=== PATIENT | male | born 1940 ===

== ENCOUNTER 2016-07-28 20:11 | Emergency (ER) | payer MEDICARE, BC ==
[2016-07-28 20:11] VITALS: BMI 33.9
[2016-07-28 20:26] VITALS: TEMP 97.9
[2016-07-28 21:00] VITALS: RESP 20
[2016-07-28] MEDS ORDERED: Sodium Chloride 0.9% 1,000 ML IV SCH (21:15)
[2016-07-28] MEDS ORDERED: Sodium Chloride 0.9% 1,000 ML ONE (21:18)
[2016-07-28 21:23] LABS: BASO % 0.3 % (0.0-2.0); EOS # 0.1 K/uL (0.0-0.7); EOS % 1.5 % (0.0-4.0); HEMATOCRIT 40.6 % (35.0-51.0); LYMPH # 0.8 K/uL (1.0-4.3); MEAN CORPUSCULAR HEMOGLOBIN 27.7 pg (27.0-31.0); MEAN CORPUSCULAR HGB CONC 32.3 g/dL (33.0-37.0); MEAN PLATELET VOLUME 8.4 fL (7.2-11.7); MONO # 0.6 K/uL (0.0-0.8); MONO % 10.3 % (0.0-10.0); NRBC % 0.1 % (0.0-2.0); RED CELL DISTRIBUTION WIDTH 15.7 % (11.5-14.5)
[2016-07-28 21:28] LABS: CHLORIDE 105 mmol/L (98-107)
[2016-07-28 21:29] LABS: POTASSIUM 4.4 mmol/L (3.6-5.2); SODIUM 138 mmol/L (132-148)
[2016-07-28 21:31] LABS: ALB/GLOB RATIO 1.5 (1.0-2.1); AST/SGOT 24 U/L (17-59); BILIRUBIN,TOTAL 0.9 mg/dL (0.2-1.3); CARBON DIOXIDE 21 mmol/L (22-30); GFR AFRICAN-AMERICAN > 60; TOTAL PROTEIN 7.3 g/dL (6.3-8.3)
[2016-07-28 21:32] LABS: ALKALINE PHOSPHATASE 54 U/L (38-126); ALT/SGPT 45 U/L (21-72); BLOOD UREA NITROGEN 25 mg/dL (9-20); CALCIUM 9.4 mg/dl (8.6-10.4); GLUCOSE,RANDOM 106 mg/dL (75-110)
[2016-07-28 22:45] LABS: RBC URINE 2 /hpf (0-3); URINE BILIRUBIN NEGATIVE (NEGATIVE); URINE BLOOD NEGATIVE (NEGATIVE); URINE COLOR Yellow (YELLOW); URINE GLUCOSE (UA) NORMAL (Normal); URINE KETONE NEGATIVE (NEGATIVE); URINE LEUKOCYTE ESTERASE NEG Leu/uL (Negative); URINE PROTEIN NEGATIVE (NEGATIVE); URINE UROBILINOGEN NORMAL mg/dL (0.2-1.0); WBC URINE 4 /hpf (0-5)
--- NOTE | 2016-07-28 22:49 | C.PDOC ---
History Of Present Illness 75 year old male presents to the ED with complaints of non-productive cough for a month with generalized malaise for a week. Patient denies any chest pain, SOB , abdominal pain, nausea, or vomiting. Chief Complaint (Nursing): Shortness Of Breath History Per: Patient History/Exam Limitations: no limitations Onset/Duration Of Symptoms: Persistent Current Symptoms Are (Timing): Still Present Associated Symptoms: denies: Fever, Chills, Chest Pain Recent travel outside of the [place]: No Past Medical History Reviewed: Historical Data, Nursing Documentation, Vital Signs Vital Signs: Last Vital Signs Temp 97.9 F 07/28/16 23:24 Pulse 60 07/28/16 23:24 Resp 20 07/28/16 23:24 BP 141/77 07/28/16 23:24 Pulse Ox 100 07/28/16 23:24 - Medical History PMH: HTN Surgical History: Coronary Stent Family History: States: Unknown Family Hx - Social History Hx Tobacco Use: Yes (QUIT) Hx Alcohol Use: No Hx Substance Use: No - Immunization History Hx Tetanus Toxoid Vaccination: No Hx Influenza Vaccination: No Hx Pneumococcal Vaccination: No Review Of Systems Constitutional: Positive for: Malaise. Negative for: Fever, Chills Cardiovascular: Negative for: Chest Pain Respiratory: Positive for: Cough (non-productive cough ). Negative for: Shortness of Breath Gastrointestinal: Negative for: Nausea, Vomiting, Abdominal Pain, Diarrhea Physical Exam - Physical Exam Appears: Non-toxic, No Acute Distress Skin: Warm, Dry Neck: Normal ROM, Supple Cardiovascular: Other (ekg sinus rhythm 77, 1st degree AV block, left axis deviation) Respiratory: No Decreased Breath Sounds, No Accessory Muscle Use, No Rales, No Rhonchi, No Stridor, No Wheezing Gastrointestinal/Abdominal: Soft, No Tenderness, No Distention, No Guarding, No Rebound Back: No CVA Tenderness Neurological/Psych: Oriented x3 ED Course And Treatment - Laboratory Results Result Diagrams: 07/28/16 21:16 07/28/16 21:16 O2 Sat by Pulse Oximetry: 99 Disposition - Disposition Referrals: Krish Tobar MD [Medical Doctor] - Disposition: HOME/ ROUTINE Disposition Time: 22:50 Condition: GOOD Additional Instructions: Thank you for letting us take care of you today. Your provider was Dr. Medina. You were treated for persistent cough. The emergency medical care you received today was directed at your acute symptoms. If you were prescribed any medication, please fill it and take as directed. It may take several days for your symptoms to resolve. Return to the Emergency Department if your symptoms worsen, do not improve, or if you have any other problems. Please contact your doctor or call one of the physicians/clinics you have been referred to that are listed on the Patient Visit Information form that is included in your discharge packet. Bring any paperwork you were given at discharge with you along with any medications you are taking to your follow up visit. Our treatment cannot replace ongoing medical care by a primary care provider (PCP) outside of the emergency department. Thank you for allowing the [facility] team to be part of your care today. Follow up with Dr. Tobar in 2 days as scheduled to be re-evaluated. Prescriptions: Azithromycin [Zithromax] 250 mg PO DAILY #6 tab Instructions: Acute Bronchitis (ED) - Clinical Impression Clinical Impression: Bronchitis - Scribe Statement The provider has reviewed the documentation as recorded by the Scribe Dana Tuttle All medical record entries made by the Scribe were at my direction and personally dictated by me. I have reviewed the chart and agree that the record accurately reflects my personal performance of the history, physical exam, medical decision making, and the department course for this patient. I have also personally directed, reviewed, and agree with the discharge instructions and disposition.
[2016-07-28 23:25] VITALS: BP 141/77; PULSE 60
[2016-07-29 02:38] VITALS: O2SAT 99
--- NOTE | 2016-07-29 07:49 | RAD ---
PROCEDURE: CHEST RADIOGRAPH, 1 VIEW HISTORY: cough COMPARISON: None available. FINDINGS: LUNGS: Mild venous congestion. Mild left basilar atelectasis. PLEURA: No pneumothorax or pleural fluid seen. CARDIOVASCULAR: Normal. OSSEOUS STRUCTURES: No significant abnormalities. VISUALIZED UPPER ABDOMEN: Normal. OTHER FINDINGS: None. IMPRESSION: Mild venous congestion. Mild left basilar atelectasis.
--- NOTE | 2016-08-13 18:13 | CARD ---
APPROVED REPORT EKG Measurement Heart [id number] <Conclusion> Sinus rhythm with 1st degree AV block Otherwise normal ECG
== END 2016-07-28 23:50 | disposition home or self-care (01) ==
LOC: C.ER 20:11
DX: J40 Bronchitis, not specified as acute or chronic (principal)
CPT/HCPCS: 71010; 80053; 81001; 83880; 84484; 85025; 96360; 99284; J7040

== ENCOUNTER 2016-09-14 10:54 | Emergency (ER) | payer MEDICARE, BC ==
[2016-09-14 11:11] VITALS: O2SAT 97
[2016-09-14 11:12] VITALS: BMI 34.8
[2016-09-14] MEDS ORDERED: Sodium Chloride 0.9% 1,000 ML IV ONE ×2 (11:47→11:48)
--- NOTE | 2016-09-14 11:47 | C.PDOC ---
History Of Present Illness 75 y/o male with Hx of arthritis and chronic knee pain presents to ED with complaints of right leg pain, dizziness for a "couple of weeks", occasional buzzing sound and hearing loss on right ear. A genicular nerve block procedure was done by Dr. Brunson on 09/03/16. Patient states noticing bruising and swelling to area the following day, tried calling the Physician but he is out of town. Patient denies headache, numbness, weakness or any other complaints at this time. Time Seen by Provider: 09/14/16 11:22 Chief Complaint (Nursing): Lower Extremity Problem/Injury History Per: Patient History/Exam Limitations: no limitations Onset/Duration Of Symptoms: Days Current Symptoms Are (Timing): Still Present Past Medical History Reviewed: Historical Data, Nursing Documentation, Vital Signs Vital Signs: Last Vital Signs Temp 97.8 F 09/14/16 14:57 Pulse 64 09/14/16 14:57 Resp 20 09/14/16 14:57 BP 132/70 09/14/16 14:57 Pulse Ox 97 09/14/16 14:57 - Medical History PMH: HTN Surgical History: Coronary Stent Family History: States: Unknown Family Hx - Social History Hx Tobacco Use: Yes (QUIT) Hx Alcohol Use: No Hx Substance Use: No - Immunization History Hx Tetanus Toxoid Vaccination: No Hx Influenza Vaccination: No Hx Pneumococcal Vaccination: No Review Of Systems Constitutional: Negative for: Fever, Chills ENT: Positive for: Ear Pain Respiratory: Negative for: Shortness of Breath Skin: Positive for: Bruising Neurological: Negative for: Weakness, Headache, Dizziness Physical Exam - Physical Exam Appears: Non-toxic, No Acute Distress Skin: Normal Color, Warm Head: Atraumatic, Normacephalic Eye(s): bilateral: Normal Inspection, EOMI Ear(s): Bilateral: Normal Oral Mucosa: Moist Neck: Normal ROM Chest: Symmetrical Cardiovascular: Rhythm Regular, No Murmur Respiratory: Normal Breath Sounds, No Rales, No Rhonchi, No Wheezing Extremity: Tenderness (Right knee Tenderness), No Calf Tenderness, Swelling ( Right knee hematoma to medial aspect of knee) Pulses: Left Dorsalis Pedis: Normal, Right Dorsalis Pedis: Normal Neurological/Psych: Oriented x3, Normal Speech, Normal Cognition, Other (No focal deficits) Gait: Steady ED Course And Treatment - Laboratory Results Result Diagrams: 09/14/16 12:07 09/14/16 12:07 Lab Interpretation: No Acute Changes ECG: Interpreted By Me, Viewed By Me ECG Rhythm: Sinus Rhythm ECG Interpretation: No Acute Changes Rate From EC (Normal ECG) O2 Sat by Pulse Oximetry: 97 (Room air ) Medical Decision Making Medical Decision Making: Impression: Dizziness and right knee pain Plan: Labs, doppler Progress: Dr. Mcnair evaluated patient and agreed with plan Doppler reviewed and negative for DVT Labs unremarkable Patient reports feeling much better and denies any dizziness upon reevaluation. No headache or other complaints Patient is alert and oriented and no neuro deficits. Patient stable for discharge. Instructed to follow up with ortho Disposition Counseled Patient/Family Regarding: Need For Followup - Disposition Referrals: Melvin Brunson MD [Staff Provider] - Disposition: HOME/ ROUTINE Disposition Time: 14:45 Condition: STABLE Additional Instructions: Your labs were normal Doppler reviewed and negative for DVT Please follow up with your primary physician and ortho Prescriptions: Meclizine HCl 25 mg PO Q8 PRN #30 tablet PRN Reason: Dizziness Instructions: Vertigo (ED), Hematoma (ED) Print Language: CITIZEN OF [place] - POA Present On Arrival: None - Clinical Impression Clinical Impression: Hematoma, Vertigo - 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 - Scribe Statement The provider has reviewed the documentation as recorded by the Taniibjodie Mistry All medical record entries made by the Taniibjodie were at my direction and personally dictated by me. I have reviewed the chart and agree that the record accurately reflects my personal performance of the history, physical exam, medical decision making, and the department course for this patient. I have also personally directed, reviewed, and agree with the discharge instructions and disposition.
[2016-09-14 12:12] LABS: BASO # 0.1 K/uL (0.0-0.2); BASO % 0.7 % (0.0-2.0); EOS # 0.1 K/uL (0.0-0.7); EOS % 1.3 % (0.0-4.0); HEMATOCRIT 39.3 % (35.0-51.0); LYMPH % 14.1 % (20.0-40.0); MEAN CELL VOLUME 86.4 fL (80.0-94.0); MEAN CORPUSCULAR HEMOGLOBIN 28.5 pg (27.0-31.0); MEAN PLATELET VOLUME 8.4 fL (7.2-11.7); MONO # 0.8 K/uL (0.0-0.8); MONO % 11.5 % (0.0-10.0); RED CELL DISTRIBUTION WIDTH 15.6 % (11.5-14.5); WHITE BLOOD COUNT 6.9 K/uL (4.8-10.8)
[2016-09-14 12:20] LABS: INR 1.1
[2016-09-14 12:21] LABS: CHLORIDE 104 mmol/L (98-107)
[2016-09-14 12:22] LABS: POTASSIUM 4.6 mmol/L (3.6-5.2); SODIUM 138 mmol/L (132-148)
[2016-09-14 12:24] LABS: ALB/GLOB RATIO 1.6 (1.0-2.1); AST/SGOT 15 U/L (17-59); BILIRUBIN,TOTAL 0.7 mg/dL (0.2-1.3); BLOOD UREA NITROGEN 30 mg/dL (9-20); CARBON DIOXIDE 23 mmol/L (22-30); GFR AFRICAN-AMERICAN > 60; TOTAL PROTEIN 6.4 g/dL (6.3-8.3)
[2016-09-14 12:25] LABS: ALKALINE PHOSPHATASE 53 U/L (38-126); ALT/SGPT 16 U/L (21-72); CALCIUM 8.9 mg/dl (8.6-10.4); GLUCOSE,RANDOM 103 mg/dL (75-110)
[2016-09-14 14:58] VITALS: BP 132/70; PULSE 64; RESP 20; TEMP 97.8
--- NOTE | 2016-09-18 10:13 | VASCLAB ---
PROCEDURE: Right Lower Extremity Venous Duplex Exam. HISTORY: pain and swelling s.p procedure PRIORS: None. TECHNIQUE: Right common femoral, femoral, popliteal and posterior tibial, peroneal and great saphenous veins were evaluated. Flow was assessed with color Doppler, compressibility, assessment of phasic flow and augmentation response. Report prepared by EUGENIA Marino, RVT FINDINGS: RIGHT: 1. Common Femoral Vein: 1.1. Compressibility - Fully compressible: Thrombus - None: Flow - Phasic: Augmentation -Normal: Reflux - None. 2. Femoral Vein: 2.1. Compressibility - Fully compressible: Thrombus - None: Flow - Phasic: Augmentation -Normal: Reflux - None. 3. Popliteal Vein: 3.1. Compressibility - Fully compressible: Thrombus - None: Flow - Phasic: Augmentation -Normal: Reflux - None. 4. Posterior Tibial Vein: 4.1. Compressibility - Fully compressible: Thrombus - None: Flow - Phasic: Augmentation -Normal: Reflux - None. 5. Peroneal Vein: 5.1. Compressibility - Fully compressible: Thrombus - None: Flow - Phasic: Augmentation -Normal: Reflux - None. 6. Great Saphenous Vein: 6.1. Compressibility - Fully compressible: Thrombus -None: Flow - Phasic: Augmentation - Normal: Reflux - None. OTHER FINDINGS: IMPRESSION: No evidence of deep or superficial vein thrombosis of the right lower extremity with excellent venous flow. Normal valve function noted of the right side. Normal venous flow noted in the left common femoral vein.
--- NOTE | 2016-09-18 12:42 | CARD ---
APPROVED REPORT EKG Measurement Heart [id number] <Conclusion> Normal sinus rhythm Normal ECG
== END 2016-09-14 14:57 | disposition home or self-care (01) ==
LOC: C.ER 10:54
DX: R42 Dizziness and giddiness (principal); L76.32 Postprocedural hematoma of skin and subcutaneous tissue following other procedure

== ENCOUNTER 2018-02-05 11:05 | Emergency (ER) | payer MEDICARE, BC ==
[2018-02-05 11:05] VITALS: BMI 32.8
[2018-02-05 11:16] VITALS: RESP 18
--- NOTE | 2018-02-05 11:47 | C.PDOC ---
Addendum entered and electronically signed by Nellie Penn PA-C 02/06/18 17:51: Addendum Addendum: . Original Note: History Of Present Illness 77 year old male presents to the ED for evaluation of mid-back pain for the last new days s/p CT guided needle biopsy in [facility] on 01/21/18. Patient reports that after the biopsy he has been experiencing back pain, shortness of breath, and difficulty sleeping when applying pressure to the area. Notes has had not followed up with his doctor, does not know the results of the biopsy, and has a follow up appointment in a few days. Denies fever, nausea, vomiting, and any other associated symptoms. Time Seen by Provider: 02/05/18 11:23 Chief Complaint (Nursing): Shortness Of Breath History Per: Patient History/Exam Limitations: no limitations Onset/Duration Of Symptoms: Days Current Symptoms Are (Timing): Still Present Past Medical History Reviewed: Historical Data, Nursing Documentation, Vital Signs Vital Signs: Last Vital Signs Temp 98.7 F 02/05/18 11:08 Pulse 70 02/05/18 11:08 Resp 18 02/05/18 11:08 BP 161/78 H 02/05/18 11:08 Pulse Ox 97 02/05/18 11:08 - Medical History PMH: Back Problems, HTN, Hypercholesterolemia, Chronic Kidney Disease Surgical History: Coronary Stent Denies: Pacemaker Family History: States: Unknown Family Hx - Social History Hx Tobacco Use: Yes (QUIT) Hx Alcohol Use: No Hx Substance Use: No - Immunization History Hx Tetanus Toxoid Vaccination: No Hx Influenza Vaccination: No Hx Pneumococcal Vaccination: No Review Of Systems Constitutional: Negative for: Fever Respiratory: Positive for: Shortness of Breath Gastrointestinal: Negative for: Nausea, Vomiting Musculoskeletal: Positive for: Back Pain (mid-back.) Physical Exam - Physical Exam Appears: Well, Non-toxic Skin: Normal Color, Warm, Dry Head: Atraumatic, Normacephalic Eye(s): bilateral: Normal Inspection Oral Mucosa: Moist Neck: Normal ROM, Supple Chest: Symmetrical, No Deformity, No Tenderness Cardiovascular: Rhythm Regular, No Murmur Respiratory: Normal Breath Sounds, No Rales, No Rhonchi, No Wheezing Gastrointestinal/Abdominal: Normal Exam, Soft, No Tenderness Back: Normal Inspection, No CVA Tenderness, No Other ((-) no ecchymosis. (-) swelling. (-) erythema. (-) cellulitis.) Extremity: Normal ROM (x4) Neurological/Psych: Oriented x3, Normal Speech Gait: Steady ED Course And Treatment - Laboratory Results Result Diagrams: 02/05/18 11:47 02/05/18 11:47 ECG: Viewed By Me ECG Rhythm: Sinus Rhythm Interpretation Of ECG: [place] sinus. [address] elevations Rate From EC O2 Sat by Pulse Oximetry: 97 (RA) Pulse Ox Interpretation: Normal - Other Rad CXR X-Ray: Viewed By Me, Read By Radiologist Interpretation: FINDINGS: LUNGS: Somewhat diminished inspiratory volume identified bilaterally. Crowding of bronchovascular markings is seen more so on the right than left base though limited alveolitis not excluded here. Clinically correlate further. PLEURA: No significant pleural effusion identified. No pneumothorax apparent. CARDIOVASCULAR: No atherosclerotic calcification present. Normal. OSSEOUS STRUCTURES: No significant abnormalit ies. VISUALIZED UPPER ABDOMEN: Normal. OTHER FINDINGS: None. IMPRESSION: Diminished history volume crowds the bronchovascular markings at the right greater than left lung bases. Early alveolitis difficult to completely exclude the right base but is not definite. Clinically correlate further. Remaining lung patel clear. No pulmonary vascular congestion. Lung VQ X-Ray: Viewed By Me, Read By Radiologist Interpretation: FINDINGS: VENTILATION COMPONENT: Normal. PERFUSION COMPONENT: Heterogeneous distribution of radionuclide. No geographic, segmental, lobar abnormalities apparent on the present examination. IMPRESSION: Low probability ventilation perfusion scan for pulmonary embolism. Medical Decision Making Medical Decision Making: Plan/Orders: --Blood sent. --CXR. --Urinalysis. --EKG. --D Dimer COAG. EKG [place] sinus [address] elevations Patient stable for discharge home. 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 - Scribe Statement The provider has reviewed the documentation as recorded by the Scribe (Beverly Calles) All medical record entries made by the Scribe were at my direction and personally dictated by me. I have reviewed the chart and agree that the record accurately reflects my personal performance of the history, physical exam, medical decision making, and the department course for this patient. I have also personally directed, reviewed, and agree with the discharge instructions and disposition.
[2018-02-05 11:52] LABS: BASO # 0.1 K/uL (0.0-0.2); BASO % 0.9 % (0.0-2.0); EOS # 0.2 K/uL (0.0-0.7); EOS % 2.4 % (0.0-4.0); HEMOGLOBIN 12.1 g/dL (12.0-18.0); LYMPH % 12.3 % (20.0-40.0); MEAN CELL VOLUME 84.6 fL (80.0-94.0); MEAN CORPUSCULAR HEMOGLOBIN 28.4 pg (27.0-31.0); MEAN CORPUSCULAR HGB CONC 33.6 g/dL (33.0-37.0); MEAN PLATELET VOLUME 8.4 fL (7.2-11.7); MONO # 0.8 K/uL (0.0-0.8); MONO % 10.4 % (0.0-10.0); NEUT # 5.8 K/uL (1.8-7.0); NRBC % 0.1 % (0.0-2.0); RBC 4.27 Mil/uL (4.40-5.90); RED CELL DISTRIBUTION WIDTH 14.7 % (11.5-14.5); WHITE BLOOD COUNT 7.8 K/uL (4.8-10.8)
[2018-02-05 12:08] LABS: ALB/GLOB RATIO 1.5 (1.0-2.1); ALBUMIN 4.1 g/dL (3.5-5.0); ALT/SGPT 25 U/L (21-72); AST/SGOT 20 U/L (17-59); BLOOD UREA NITROGEN 23 mg/dL (9-20); CALCIUM 9.4 mg/dl (8.6-10.4); GFR NON-AFRICAN AMERICAN 58
[2018-02-05 12:15] LABS: SQUAMOUS EPITHIAL < 1 /hpf (0-5); URINE BILIRUBIN NEGATIVE (NEGATIVE); URINE BLOOD 1+ (NEGATIVE); URINE CLARITY Clear (Clear); URINE COLOR Yellow (YELLOW); URINE GLUCOSE (UA) NORMAL (Normal); URINE LEUKOCYTE ESTERASE NEG Leu/uL (Negative); URINE PROTEIN NEGATIVE (NEGATIVE); URINE UROBILINOGEN NORMAL mg/dL (0.2-1.0)
--- NOTE | 2018-02-05 13:59 | RAD ---
Date of service: 02/05/2018 HISTORY: sob COMPARISON: Portable chest 07/28/2016. TECHNIQUE: Chest PA and lateral FINDINGS: LUNGS: Somewhat diminished inspiratory volume identified bilaterally. Crowding of bronchovascular markings is seen more so on the right than left base though limited alveolitis not excluded here. Clinically correlate further. PLEURA: No significant pleural effusion identified. No pneumothorax apparent. CARDIOVASCULAR: No atherosclerotic calcification present Normal. OSSEOUS STRUCTURES: No significant abnormalities. VISUALIZED UPPER ABDOMEN: Normal. OTHER FINDINGS: None. IMPRESSION: Diminished history volume crowds the bronchovascular markings at the right greater than left lung bases. Early alveolitis difficult to completely exclude the right base but is not definite. Clinically correlate further. Remaining lung patel clear. No pulmonary vascular congestion.
--- NOTE | 2018-02-05 15:22 | NM ---
Date of service: 02/05/2018 COMPARISON: February 05, 2018 TECHNIQUE: 10.3 mCi technetium 99-m Xe-133 Gas. 0.2 mCI technetium 99-m MAA administered intravenously. FINDINGS: VENTILATION COMPONENT: Normal. PERFUSION COMPONENT: Heterogeneous distribution of radionuclide. No geographic, segmental, lobar abnormalities apparent on the present examination. IMPRESSION: Low probability ventilation perfusion scan for pulmonary embolism.
[2018-02-05 15:48] VITALS: BP 123/69; PULSE 63; TEMP 98.1; O2SAT 100
== END 2018-02-05 15:48 | disposition home or self-care (01) ==
LOC: C.ER 11:05
DX: M54.6 Pain in thoracic spine (principal)